=== PATIENT | male | born 1965 | race Caucasian/White ===

== ENCOUNTER 2022-01-22 17:24 | Inpatient (IN) | payer BC ==
[~2022-01-22] VITALS: Ht 188 cm; Wt 98.0 kg
[2022-01-22 19:00] VITALS: BP 122/74
[2022-01-22] MEDS ORDERED: DEXTROSE 50%-WATER 25 GM/50 ML SYRINGE IVP PRN (20:00)
[2022-01-22] MEDS ORDERED: ACETAMINOPHEN 325 MG TABLET PO PRN (20:00)
[2022-01-22] MEDS: INSULIN LISPRO 100 UNITS/ML SQ PRN (21:12)
[2022-01-22] MEDS: INSULIN GLARGINE,HUM.REC.ANLOG 100 UNITS/ML SQ SCH (21:12)
[2022-01-22] MEDS: SENNA 187 MG TABLET PO SCH (21:17)
[2022-01-22] MEDS: DOCUSATE SODIUM 100 MG CAPSULE PO SCH (21:17)
[2022-01-22] MEDS: ETHYL ALCOHOL 62% ANTISEPTIC NASAL INHALANT 0.6 ML AMPUL NASAL SCH (21:17)
[2022-01-22] MEDS: APIXABAN 5 MG TABLET PO SCH (21:17)
[2022-01-22] MEDS: CARVEDILOL 25 MG TABLET PO SCH (21:17)
[2022-01-22] MEDS: MELATONIN 3 MG TABLET PO PRN (21:17)
[2022-01-22] MEDS: GABAPENTIN 300 MG CAPSULE PO SCH (21:17)
[2022-01-22] MEDS: LevETIRAcetam 250 MG TABLET PO SCH (21:24)
[2022-01-22 21:46] LABS: GLUCOMETER DEV NAME(LOC) 2WR.2B; GLUCOSE,POINT OF CARE 216 MG/DL (70-110)
[2022-01-22 23:47] VITALS: BP 122/74
[2022-01-23 04:24] VITALS: BP 121/72
[2022-01-23] MEDS: FAMOTIDINE 20 MG TABLET PO SCH ×2 (05:35→17:03)
[2022-01-23 06:26] LABS: GLUCOMETER DEV NAME(LOC) 2WR.1C; GLUCOSE,POINT OF CARE 141 MG/DL (70-110)
[2022-01-23] MEDS: ACETAMINOPHEN 325 MG TABLET PO PRN ×2 (08:21→16:09)
[2022-01-23] MEDS: LevETIRAcetam 250 MG TABLET PO SCH ×2 (08:21→20:37)
[2022-01-23] MEDS: DOCUSATE SODIUM 100 MG CAPSULE PO SCH ×2 (08:22→20:37)
[2022-01-23] MEDS: GABAPENTIN 400 MG CAPSULE PO SCH (08:22)
[2022-01-23] MEDS: CARVEDILOL 25 MG TABLET PO SCH ×2 (08:23→20:38)
[2022-01-23] MEDS: SPIRONOLACTONE 25 MG TABLET PO SCH (08:23)
[2022-01-23] MEDS: APIXABAN 5 MG TABLET PO SCH ×2 (08:23→20:37)
[2022-01-23] MEDS: LOSARTAN POTASSIUM 50 MG TABLET PO SCH (08:23)
[2022-01-23] MEDS: MetFORMIN HCL 500 MG TABLET PO SCH ×2 (08:24→17:03)
[2022-01-23] MEDS: INSULIN LISPRO 100 UNITS/ML SQ PRN ×2 (08:26→20:43)
[2022-01-23] MEDS: INSULIN LISPRO 100 UNITS/ML SQ SCH ×3 (08:26→17:05)
[2022-01-23 08:30] VITALS: BP 144/81
[2022-01-23] MEDS: ETHYL ALCOHOL 62% ANTISEPTIC NASAL INHALANT 0.6 ML AMPUL NASAL SCH ×2 (08:31→20:36)
[2022-01-23 10:25] LABS: BASOPHILS % (AUTO) 0.1 % (0.0-2.0); EOSINOPHILS % (AUTO) 0.7 % (1.0-6.0); HEMATOCRIT 35.7 % (41-53); HEMOGLOBIN 12.6 g/dL (13.5-17.5); LYMPHOCYTES # (AUTO) 0.8 K/uL (1.0-4.8); LYMPHOCYTES % (AUTO) 12.2 % (22.0-44.0); MEAN CORPUSCULAR HEMOGLOBIN 33.7 pg (26.0-34.0); MEAN CORPUSCULAR HGB CONC 35.2 G/dL (31.0-37.0); MEAN CORPUSCULAR VOLUME 96 fL (80-100); MONOCYTES # (AUTO) 0.5 K/uL (0.1-1.0); MONOCYTES % (AUTO) 7.2 % (2.0-9.0); NEUTROPHILS # (AUTO) 5.3 K/uL (1.8-7.7); NEUTROPHILS % (AUTO) 79.8 % (40.0-70.0); PLATELET COUNT (AUTO) 374 K/uL (150-450); RED BLOOD CELL COUNT(AUTO) 3.72 MIL/uL (4.50-5.90); RED CELL DISTRIBUTION WIDTH 12.6 % (11.5-14.5)
[2022-01-23 10:40] LABS: ALANINE AMINOTRANSFERASE 71 U/L (12-78); ALBUMIN 3.2 g/dL (3.4-5.0); ALKALINE PHOSPHATASE 57 U/L (46-116); ANION GAP 5 mmol/L (8-16); ASPARTATE AMINOTRANSFERASE 31 U/L (15-37); BILIRUBIN,TOTAL 0.5 mg/dL (0.1-1.0); CALCIUM, TOTAL 9.3 mg/dL (8.8-10.5); CARBON DIOXIDE 30 mmol/L (22-29); CHLORIDE 101 mmol/L (98-107); CREATININE 1.09 mg/dL (0.60-1.30); GLOMERULAR FILTR. RATE CALC > 60 mL/min (>60); GLUCOSE,RANDOM 219 mg/dL (70-110); POTASSIUM 4.3 mmol/L (3.5-5.1); SODIUM SERUM 136 mmol/L (136-145); TOTAL PROTEIN, SERUM 7.1 g/dL (6.4-8.2); UREA NITROGEN, BLOOD 10 mg/dL (7-18)
[2022-01-23 10:57] LABS: HEMOGLOBIN A1C 7.5 % (3.8-5.6)
[2022-01-23 15:16] LABS: GLUCOMETER DEV NAME(LOC) 2WR.2B; GLUCOSE,POINT OF CARE 122 MG/DL (70-110)
[2022-01-23 16:09] VITALS: BP 140/89
[2022-01-23 16:51] LABS: GLUCOMETER DEV NAME(LOC) 2WR.1C; GLUCOSE,POINT OF CARE 103 MG/DL (70-110)
[2022-01-23 18:36] LABS: GLUCOMETER DEV NAME(LOC) 2WR.1C; GLUCOSE,POINT OF CARE 119 MG/DL (70-110)
[2022-01-23] MEDS: SENNA 187 MG TABLET PO SCH (20:37)
[2022-01-23] MEDS: GABAPENTIN 300 MG CAPSULE PO SCH (20:37)
[2022-01-23] MEDS: INSULIN GLARGINE,HUM.REC.ANLOG 100 UNITS/ML SQ SCH (20:41)
[2022-01-23] MEDS: MELATONIN 3 MG TABLET PO PRN (20:48)
[2022-01-23 22:11] LABS: GLUCOMETER DEV NAME(LOC) 2WR.2B; GLUCOSE,POINT OF CARE 145 MG/DL (70-110)
[2022-01-24 01:25] VITALS: BP 118/72
[2022-01-24] MEDS: FAMOTIDINE 20 MG TABLET PO SCH ×2 (05:55→15:38)
[2022-01-24 07:55] VITALS: BP 114/55
[2022-01-24] MEDS: INSULIN LISPRO 100 UNITS/ML SQ SCH ×3 (08:00→16:25)
[2022-01-24] MEDS: LevETIRAcetam 250 MG TABLET PO SCH ×2 (08:02→20:26)
[2022-01-24] MEDS: ACETAMINOPHEN 325 MG TABLET PO PRN ×3 (08:02→20:34)
[2022-01-24] MEDS: CARVEDILOL 25 MG TABLET PO SCH ×2 (08:03→20:27)
[2022-01-24] MEDS: GABAPENTIN 400 MG CAPSULE PO SCH (08:03)
[2022-01-24] MEDS: MetFORMIN HCL 500 MG TABLET PO SCH ×2 (08:03→16:21)
[2022-01-24] MEDS: APIXABAN 5 MG TABLET PO SCH ×2 (08:03→20:27)
[2022-01-24] MEDS: LOSARTAN POTASSIUM 50 MG TABLET PO SCH (08:03)
[2022-01-24] MEDS: DOCUSATE SODIUM 100 MG CAPSULE PO SCH ×2 (08:04→20:27)
[2022-01-24] MEDS: SPIRONOLACTONE 25 MG TABLET PO SCH (08:04)
[2022-01-24] MEDS: ETHYL ALCOHOL 62% ANTISEPTIC NASAL INHALANT 0.6 ML AMPUL NASAL SCH ×2 (08:04→20:26)
[2022-01-24 08:51] LABS: GLUCOMETER DEV NAME(LOC) 2WR.1C; GLUCOSE,POINT OF CARE 140 MG/DL (70-110)
[2022-01-24 12:16] LABS: GLUCOMETER DEV NAME(LOC) 2WR.1C; GLUCOSE,POINT OF CARE 102 MG/DL (70-110)
[2022-01-24 15:42] VITALS: BP 123/72
[2022-01-24 16:46] LABS: GLUCOMETER DEV NAME(LOC) 2WR.1C; GLUCOSE,POINT OF CARE 85 MG/DL (70-110)
[2022-01-24] MEDS: GABAPENTIN 300 MG CAPSULE PO SCH (20:26)
[2022-01-24] MEDS: SENNA 187 MG TABLET PO SCH (20:26)
[2022-01-24 20:34] VITALS: BP 118/65
[2022-01-24] MEDS: INSULIN GLARGINE,HUM.REC.ANLOG 100 UNITS/ML SQ SCH (20:39)
[2022-01-24 21:11] LABS: GLUCOMETER DEV NAME(LOC) 2WR.1C; GLUCOSE,POINT OF CARE 124 MG/DL (70-110)
[2022-01-24] MEDS: MELATONIN 3 MG TABLET PO PRN (23:18)
[2022-01-24 23:32] VITALS: BP 124/78
[2022-01-25 00:19] VITALS: BP 124/78
[2022-01-25] MEDS: FAMOTIDINE 20 MG TABLET PO SCH ×2 (05:51→16:18)
[2022-01-25 06:11] LABS: GLUCOMETER DEV NAME(LOC) 2WR.2B; GLUCOSE,POINT OF CARE 116 MG/DL (70-110)
[2022-01-25] MEDS: MetFORMIN HCL 500 MG TABLET PO SCH ×2 (08:05→16:30)
[2022-01-25] MEDS: ETHYL ALCOHOL 62% ANTISEPTIC NASAL INHALANT 0.6 ML AMPUL NASAL SCH ×2 (08:08→20:22)
[2022-01-25] MEDS: INSULIN LISPRO 100 UNITS/ML SQ SCH ×3 (08:08→17:32)
[2022-01-25] MEDS: SPIRONOLACTONE 25 MG TABLET PO SCH (08:09)
[2022-01-25] MEDS: APIXABAN 5 MG TABLET PO SCH ×2 (08:09→20:23)
[2022-01-25] MEDS: LevETIRAcetam 250 MG TABLET PO SCH ×2 (08:09→20:23)
[2022-01-25] MEDS: DOCUSATE SODIUM 100 MG CAPSULE PO SCH ×2 (08:09→20:23)
[2022-01-25] MEDS: CARVEDILOL 25 MG TABLET PO SCH ×2 (08:10→20:34)
[2022-01-25] MEDS: LOSARTAN POTASSIUM 50 MG TABLET PO SCH (08:10)
[2022-01-25] MEDS: GABAPENTIN 400 MG CAPSULE PO SCH (08:10)
[2022-01-25 08:14] VITALS: BP 100/66
[2022-01-25] MEDS: ACETAMINOPHEN 325 MG TABLET PO PRN ×2 (08:14→16:21)
[2022-01-25 12:22] LABS: GLUCOMETER DEV NAME(LOC) 2WR.2B; GLUCOSE,POINT OF CARE 131 MG/DL (70-110)
[2022-01-25 12:52] LABS: GLUCOMETER DEV NAME(LOC) 2WR.2B; GLUCOSE,POINT OF CARE 105 MG/DL (70-110)
[2022-01-25 16:01] VITALS: BP 124/74
[2022-01-25 16:56] LABS: GLUCOMETER DEV NAME(LOC) 2WR.2B; GLUCOSE,POINT OF CARE 92 MG/DL (70-110)
[2022-01-25] MEDS: GABAPENTIN 300 MG CAPSULE PO SCH (20:23)
[2022-01-25] MEDS: SENNA 187 MG TABLET PO SCH (20:23)
[2022-01-25 20:30] VITALS: BP 125/78
[2022-01-25] MEDS: INSULIN GLARGINE,HUM.REC.ANLOG 100 UNITS/ML SQ SCH (20:52)
[2022-01-25 21:16] LABS: GLUCOMETER DEV NAME(LOC) 2WR.2B; GLUCOSE,POINT OF CARE 90 MG/DL (70-110)
[2022-01-26 01:30] VITALS: BP 118/71
[2022-01-26] MEDS: FAMOTIDINE 20 MG TABLET PO SCH ×2 (06:11→16:36)
[2022-01-26 06:36] LABS: GLUCOMETER DEV NAME(LOC) 2WR.2B; GLUCOSE,POINT OF CARE 111 MG/DL (70-110)
[2022-01-26] MEDS: MetFORMIN HCL 500 MG TABLET PO SCH ×2 (07:51→18:54)
[2022-01-26] MEDS: INSULIN LISPRO 100 UNITS/ML SQ SCH ×3 (07:53→18:55)
[2022-01-26] MEDS: CARVEDILOL 25 MG TABLET PO SCH ×2 (07:58→21:14)
[2022-01-26] MEDS: SPIRONOLACTONE 25 MG TABLET PO SCH (07:59)
[2022-01-26] MEDS: DOCUSATE SODIUM 100 MG CAPSULE PO SCH ×2 (07:59→21:14)
[2022-01-26] MEDS: APIXABAN 5 MG TABLET PO SCH ×2 (07:59→21:15)
[2022-01-26] MEDS: GABAPENTIN 400 MG CAPSULE PO SCH (07:59)
[2022-01-26] MEDS: LevETIRAcetam 250 MG TABLET PO SCH ×2 (08:00→21:14)
[2022-01-26] MEDS: LOSARTAN POTASSIUM 50 MG TABLET PO SCH (08:00)
[2022-01-26] MEDS: ETHYL ALCOHOL 62% ANTISEPTIC NASAL INHALANT 0.6 ML AMPUL NASAL SCH ×2 (08:00→21:14)
[2022-01-26 08:01] VITALS: BP 115/71
[2022-01-26] MEDS: ACETAMINOPHEN 325 MG TABLET PO PRN ×2 (10:54→16:29)
[2022-01-26 12:11] LABS: GLUCOMETER DEV NAME(LOC) 2WR.2B; GLUCOSE,POINT OF CARE 109 MG/DL (70-110)
[2022-01-26 16:30] VITALS: BP 106/61
[2022-01-26 17:00] LABS: GLUCOMETER DEV NAME(LOC) 2WR.1C; GLUCOSE,POINT OF CARE 83 MG/DL (70-110)
[2022-01-26 21:00] VITALS: BP 116/71
[2022-01-26] MEDS: SENNA 187 MG TABLET PO SCH (21:14)
[2022-01-26] MEDS: GABAPENTIN 300 MG CAPSULE PO SCH (21:15)
[2022-01-26] MEDS: INSULIN GLARGINE,HUM.REC.ANLOG 100 UNITS/ML SQ SCH (21:24)
[2022-01-26 21:41] LABS: GLUCOMETER DEV NAME(LOC) 2WR.2B; GLUCOSE,POINT OF CARE 104 MG/DL (70-110)
[2022-01-26] MEDS: MELATONIN 3 MG TABLET PO PRN (21:48)
[2022-01-27 05:54] VITALS: BP 118/72
[2022-01-27 06:06] LABS: GLUCOMETER DEV NAME(LOC) 2WR.2B; GLUCOSE,POINT OF CARE 95 MG/DL (70-110)
[2022-01-27] MEDS: FAMOTIDINE 20 MG TABLET PO SCH ×2 (06:29→17:00)
[2022-01-27 08:01] VITALS: BP 112/77
[2022-01-27] MEDS: INSULIN LISPRO 100 UNITS/ML SQ SCH ×3 (08:05→17:11)
[2022-01-27] MEDS: ETHYL ALCOHOL 62% ANTISEPTIC NASAL INHALANT 0.6 ML AMPUL NASAL SCH ×2 (08:07→20:36)
[2022-01-27] MEDS: MetFORMIN HCL 500 MG TABLET PO SCH ×2 (08:07→17:14)
[2022-01-27] MEDS: LevETIRAcetam 250 MG TABLET PO SCH ×2 (08:08→20:37)
[2022-01-27] MEDS: DOCUSATE SODIUM 100 MG CAPSULE PO SCH ×2 (08:08→20:38)
[2022-01-27] MEDS: APIXABAN 5 MG TABLET PO SCH ×2 (08:08→20:38)
[2022-01-27] MEDS: SPIRONOLACTONE 25 MG TABLET PO SCH (08:09)
[2022-01-27] MEDS: LOSARTAN POTASSIUM 50 MG TABLET PO SCH (08:09)
[2022-01-27] MEDS: GABAPENTIN 400 MG CAPSULE PO SCH (08:09)
[2022-01-27] MEDS: CARVEDILOL 25 MG TABLET PO SCH ×2 (08:09→20:38)
[2022-01-27] MEDS: ACETAMINOPHEN 325 MG TABLET PO PRN ×3 (10:04→20:38)
[2022-01-27 11:51] LABS: GLUCOMETER DEV NAME(LOC) 2WR.2B; GLUCOSE,POINT OF CARE 119 MG/DL (70-110)
[2022-01-27 16:30] VITALS: BP 124/74
[2022-01-27 17:51] LABS: GLUCOMETER DEV NAME(LOC) 2WR.2B; GLUCOSE,POINT OF CARE 116 MG/DL (70-110)
[2022-01-27 20:28] VITALS: BP 106/66
[2022-01-27] MEDS: GABAPENTIN 300 MG CAPSULE PO SCH (20:37)
[2022-01-27] MEDS: MELATONIN 3 MG TABLET PO PRN (20:37)
[2022-01-27] MEDS: SENNA 187 MG TABLET PO SCH (20:38)
[2022-01-27 20:41] LABS: GLUCOMETER DEV NAME(LOC) 2WR.2B; GLUCOSE,POINT OF CARE 95 MG/DL (70-110)
[2022-01-27] MEDS: INSULIN GLARGINE,HUM.REC.ANLOG 100 UNITS/ML SQ SCH (20:46)
[2022-01-28 04:17] VITALS: BP 104/64
[2022-01-28] MEDS: FAMOTIDINE 20 MG TABLET PO SCH (06:22)
[2022-01-28 07:19] VITALS: BP 112/67
[2022-01-28 07:27] LABS: GLUCOMETER DEV NAME(LOC) 2WR.2B; GLUCOSE,POINT OF CARE 103 MG/DL (70-110)
[2022-01-28] MEDS: MetFORMIN HCL 500 MG TABLET PO SCH (07:37)
[2022-01-28] MEDS: ACETAMINOPHEN 325 MG TABLET PO PRN (07:37)
[2022-01-28] MEDS: INSULIN LISPRO 100 UNITS/ML SQ SCH (07:38)
[2022-01-28] MEDS: ETHYL ALCOHOL 62% ANTISEPTIC NASAL INHALANT 0.6 ML AMPUL NASAL SCH (08:16)
[2022-01-28] MEDS: SPIRONOLACTONE 25 MG TABLET PO SCH (08:17)
[2022-01-28] MEDS: CARVEDILOL 25 MG TABLET PO SCH (08:18)
[2022-01-28] MEDS: APIXABAN 5 MG TABLET PO SCH (08:18)
[2022-01-28] MEDS: DOCUSATE SODIUM 100 MG CAPSULE PO SCH (08:18)
[2022-01-28] MEDS: LOSARTAN POTASSIUM 50 MG TABLET PO SCH (08:18)
[2022-01-28] MEDS: GABAPENTIN 400 MG CAPSULE PO SCH (08:19)
[2022-01-28] MEDS: LevETIRAcetam 250 MG TABLET PO SCH (08:19)
[2022-01-28] MEDS ORDERED: INSLAN SQ (09:18)
[2022-01-28] MEDS ORDERED: SPIR-37 PO (09:18)
[2022-01-28] MEDS ORDERED: LEVE250T PO (09:18)
[2022-01-28] MEDS ORDERED: METF-1211 PO (09:18)
[2022-01-28] MEDS ORDERED: CARV25 PO (09:18)
[2022-01-28] MEDS ORDERED: LOSA-382 PO (09:18)
[2022-01-28] MEDS ORDERED: FAMO20 PO (09:18)
[2022-01-28] MEDS ORDERED: GABA-1181 PO (09:18)
[2022-01-28] MEDS ORDERED: INSU100V SQ ×2 (09:18)
[2022-01-28] MEDS ORDERED: APIX5TAB PO (09:18)
[2022-01-28] MEDS ORDERED: GABA-1201 PO (09:18)
== END 2022-01-28 11:50 | disposition home or self-care (01) | DRG 86 ==
LOC: 2WR 18:53
PROVIDERS: ADMIT Physical Medicine & Rehabilitation; ATTEND Physical Medicine & Rehabilitation
DX: S06.9X0A Unspecified intracranial injury without loss of consciousness, initial encounter (principal); R47.01 Aphasia; E11.40 Type 2 diabetes mellitus with diabetic neuropathy, unspecified; I10 Essential (primary) hypertension; G40.909 Epilepsy, unspecified, not intractable, without status epilepticus; I48.91 Unspecified atrial fibrillation; E11.65 Type 2 diabetes mellitus with hyperglycemia; E78.1 Pure hyperglyceridemia; W18.39XA Other fall on same level, initial encounter; Y93.89 Activity, other specified; Y92.89 Other specified places as the place of occurrence of the external cause; Y99.8 Other external cause status
CPT/HCPCS: 80053; 82962; 83036; 85025; 87081; 92507; 92523; 97110; 97112; 97116; 97140; 97161; 97166; 97530; 97535; 99366; J1815